=== PATIENT | male | born 1965 | race Caucasian/White ===

== ENCOUNTER 2016-12-26 03:01 | Emergency (ER) | payer OTHER ==
--- NOTE | 2016-12-26 03:27 | ED ---
General Adult HPI - General Source: patient, EMS, RN notes reviewed Mode of arrival: EMS Limitations: physical limitation <Radha Tim - Last Filed: 12/26/16 03:59> <Lloyd Childs - Last Filed: 12/26/16 05:05> - General Stated complaint: rib pain Time Seen by Provider: 12/26/16 03:02 - History of Present Illness Initial comments: 51 yo male presents to the ER with cc of left sided rib pain. patient states he fell last friday and hit the left side of his rib cage. Patient states that he has slowly been healing but today he moved just right and had a stabbing pain to the left side of his chest. pain to movement and breathing. there is no abdominal pain, no other injury from the fall. patient denies back pain. Patient denies any recent fever, chills, shortness of breath, chest pain, back pain, abdominal pain, nausea vomiting, numbness or tingling, dysuria or hematuria, constipation or diarrhea, headaches or visual changes, or any other current symptoms. (Radha Tim) - Related Data Previous Rx's Medication Instructions Recorded Hydrocodone/Acetaminophen [[place] 1 each PO Q6HR PRN #20 tab 12/26/16 5-325] Allergies Allergy/AdvReac Type Severity Reaction Status Date / Time No Known Allergies Allergy Verified 12/26/16 03:13 Review of Systems ROS Other: All systems not noted in ROS Statement are negative. <Radha Tim - Last Filed: 12/26/16 03:59> ROS Other: All systems not noted in ROS Statement are negative. <Lloyd Childs - Last Filed: 12/26/16 05:05> ROS Statement: Those systems with pertinent positive or pertinent negative responses have been documented in the HPI. Past Medical History Past Medical History: No Reported History Additional Past Medical History / Comment(s): Kidney Stones 2007 History of Any Multi-Drug Resistant Organisms: None Reported Past Surgical History: No Surgical Hx Reported Past Psychological History: No Psychological Hx Reported Smoking Status: Never smoker Past Alcohol Use History: None Reported Past Drug Use History: None Reported <Radha Tim - Last Filed: 12/26/16 03:59> General Exam Limitations: physical limitation General appearance: alert, in no apparent distress Head exam: Present: atraumatic, normocephalic, normal inspection ENT exam: Present: normal exam, mucous membranes moist Neck exam: Present: normal inspection. Absent: tenderness, meningismus, lymphadenopathy Respiratory exam: Present: normal lung sounds bilaterally, chest wall tenderness (Left lateral and posterior along the rib cage). Absent: respiratory distress, wheezes, rales, rhonchi, stridor Cardiovascular Exam: Present: regular rate, normal rhythm, normal heart sounds. Absent: systolic murmur, diastolic murmur, rubs, gallop, clicks GI/Abdominal exam: Present: soft, normal bowel sounds. Absent: distended, tenderness, guarding, rebound, rigid Extremities exam: Present: normal inspection, full ROM, normal capillary refill. Absent: tenderness, pedal edema, joint swelling, calf tenderness Back exam: Present: normal inspection Neurological exam: Present: alert, oriented X3, CN II-XII intact Psychiatric exam: Present: normal affect, normal mood Skin exam: Present: warm, dry, intact, normal color. Absent: rash <Radha Tim - Last Filed: 12/26/16 03:59> Medical Decision Making <Radha Tim - Last Filed: 12/26/16 03:59> <Lloyd Childs - Last Filed: 12/26/16 05:05> - Medical Decision Making 51-year-old male presents to the emergency Department chief complaint of left- sided rib pain. (Radha Tim) Disposition <Radha Tim - Last Filed: 12/26/16 03:59> <Lloyd Childs - Last Filed: 12/26/16 05:05> Clinical Impression: Contusion of rib on left side, Chest wall pain, Fall, Rib fracture Disposition: HOME SELF-CARE Condition: Fair Instructions: Rib Contusion (ED) Additional Instructions: Please use medication as discussed. Please follow up with family doctor if symptoms have not improved over the next two days. Please return to the emergency room if your symptoms increase or worsen or for any other concerns. Prescriptions: Hydrocodone/Acetaminophen [[place] 5-325] 1 each PO Q6HR PRN #20 tab PRN Reason: Pain Referrals: Lloyd Ashby MD [Primary Care Provider] - 1-2 days
[2016-12-26] MEDS ORDERED: HYDROmorphone 1 MG/ML 1 ML SYRINGE IM STA (03:48)
--- NOTE | 2016-12-26 04:05 | XR ---
EXAM: XR Left Ribs and AP Chest, 3 or More Views CLINICAL HISTORY: Left mid posterior rib pain after fall from ladder TECHNIQUE: Frontal and oblique views of the left ribs and frontal view of the chest. COMPARISON: CT of the chest subsequently performed. FINDINGS: Lungs: Bibasilar atelectasis and/or infiltrates. Pleural space: Unremarkable. No pneumothorax. Heart: Unremarkable. No cardiomegaly. Mediastinum: Unremarkable. Bones/joints: Minimally displaced posterior fractures involving the left eighth and ninth ribs. IMPRESSION: Minimally displaced posterior fractures involving the left eighth and ninth ribs. Bibasilar atelectasis and/or infiltrates.
--- NOTE | 2016-12-26 04:59 | CT ---
EXAM: CT Chest Without Intravenous Contrast CLINICAL HISTORY: Left mid posterior rib pain after fall from ladder. TECHNIQUE: Axial computed tomography images of the chest without intravenous contrast. DLP is 537.50 mGy-cm. This CT exam was performed using one or more of the following dose reduction techniques: automated exposure control, adjustment of the mA and/or kV according to patient size, and/or use of iterative reconstruction technique. COMPARISON: FINDINGS: Lungs: Patchy airspace disease is seen in the bilateral lower lobes, the right middle lobe, and lingula, which likely represents atelectatic changes. Given the patient's history, this also may represent areas of pulmonary contusion. Pleural space: Unremarkable. No pneumothorax. No significant effusion. Heart: Unremarkable. No cardiomegaly. No significant pericardial effusion. Bones/joints: Minimally displaced posterior fractures involving the eighth and ninth left ribs. No dislocation. Soft tissues: Grossly unremarkable. Vasculature: Unremarkable. No thoracic aortic aneurysm. Lymph nodes: Unremarkable. No significantly enlarged lymph nodes. IMPRESSION: 1. Minimally displaced posterior fractures involving the eighth and ninth left ribs. 2. Patchy airspace disease in the bilateral lower lobes, the right middle lobe, and lingula, which likely represents atelectatic changes. Given the patient's history, this also may represent areas of pulmonary contusion.
[2016-12-26] MEDS ORDERED: IBUPROFEN 600 MG TAB PO STA (05:19)
[2016-12-26 05:44] VITALS: BP 126/77; PULSE 69; RESP 18; TEMP 97.9
== END 2016-12-26 05:55 | disposition home or self-care (01) ==
LOC: EC 03:01
DX: S22.32XA Fracture of one rib, left side, initial encounter for closed fracture (principal); W01.10XA Fall on same level from slipping, tripping and stumbling with subsequent striking against unspecified object, initial encounter
CPT/HCPCS: 71101; 71250; 99284; 96372; J1170

== ENCOUNTER → 2017-06-09 | Outpatient (CLI) | payer OTHER ==
--- NOTE | 2017-06-09 21:54 | MR ---
EXAMINATION TYPE: MR cervical spine wo con DATE OF EXAM: 06/09/2017 COMPARISON: NONE HISTORY: 51-year-old male RIGHT ARM NUMBNESS TECHNIQUE: Multiplanar, multisequence images of the cervical spine were acquired. FINDINGS: No craniocervical junction abnormality, predental space widening, or prevertebral soft tissue swellin g. Normal alignment of the cervical spine. Mild heterogeneous marrow signal without suspicious bone marrow replacement. Variable mild intervertebral disc desiccation with small disc osteophyte complexes particularly at C4 -C5, C5-C6, and C6-C7. Scattered facet and uncovertebral joint degenerative change. At C2-C3, mild facet arthropathy without canal or foraminal stenosis. At C3-C4, mild facet and uncovertebral joint arthropathy without significant canal or foraminal steno sis. At C4-C5, minimal disc osteophyte complex with facet arthropathy. No significant canal or foraminal s tenosis. At C5-C6, broad-based disc osteophyte complex with contiguous uncovertebral joint degenerative change . Additional bilateral facet degenerative change. Changes result in [id number] left and moderat e right neuroforaminal stenosis. There is minimal narrowing of the spinal canal with ventral compress ion of the thecal sac and abutment of the ventral cord but no cord flattening. At C6-C7, there is broad-based disc osteophyte, eccentric towards the left leg left-sided uncovertebr al joint degenerative change. Bilateral facet degenerative change. There is minimal narrowing of the spinal canal with ventral compression of the thecal sac but no significant cord contact. No significa nt neuroforaminal stenosis. At C7-T1, mild facet degenerative change without canal or foraminal stenosis. No prevertebral or paravertebral soft tissue abnormality seen. Normal course and signal intensity of the cervical cord. IMPRESSION: 1. Mild multilevel degenerative disc disease along with a mild facet and uncovertebral joint arthropa thy. 2. Small disc osteophyte complexes particularly from C4 through C7 levels mildly encroach on the vent ral thecal sac minimally narrowing the spinal canal. At C5-C6, there is ventral cord abutment. Howeve r, there is no cord flattening or cord compression at any level. 3. At C5-C6, changes result in moderate right and [id number] left neuroforaminal stenosis.
== END | disposition home or self-care (01) ==
LOC: RADMRIMAIN 16:54
PROVIDERS: ATTEND Psychiatry & Neurology Neurology
DX: M99.71 Connective tissue and disc stenosis of intervertebral foramina of cervical region (principal); M50.30 Other cervical disc degeneration, unspecified cervical region; M46.82 Other specified inflammatory spondylopathies, cervical region; M25.78 Osteophyte, vertebrae
CPT/HCPCS: 72141

== ENCOUNTER 2020-02-14 16:40 | Emergency (ER) | payer OTHER ==
[2020-02-14 16:45] VITALS: TEMP 97.7
--- NOTE | 2020-02-14 17:48 | XR ---
EXAMINATION TYPE: XR ankle complete LT DATE OF EXAM: 02/14/2020 COMPARISON: NONE HISTORY: Fall. Pain. TECHNIQUE: 3 views FINDINGS: There is soft tissue swelling over the lateral malleolus. Ankle mortise is anatomic. I see no fracture. Subtalar joint appears normal. IMPRESSION: Soft tissue swelling. No fracture seen.
--- NOTE | 2020-02-14 17:49 | ED ---
General Adult HPI - General Chief complaint: Fall Stated complaint: fall, lt ankle injury Time Seen by Provider: 02/14/20 16:56 Source: patient, RN notes reviewed, old records reviewed Mode of arrival: wheelchair Limitations: no limitations - History of Present Illness Initial comments: 54-year-old male patient to ED for evaluation of left lower extremity pain. Patient was reportedly walking when he fell into a crawlspace. He'll of both feet landing on his left foot. This pain in the left anterior ankle. Denies hitting his head or any pain in neck. Reports that he believes he may have fallen about 4 feet down. Denies any other complaints. Systemic: Pt denies fatigue, fever/chills, rash. Pt denies weakness, night sweats, weight loss. Neuro: Pt denies headache, visual disturbances, syncope or pre-syncope. HEENT: Pt denies ocular discharge or irritation, otalgia, rhinorrhea, pharyngitis or notable lymphadenopathy. Cardiopulmonary: Pt denies chest pain, SOB, heart palpitations, dyspnea on exertion. Abdominal/GI: Pt denies abdominal pain, n/v/d. : Pt denies dysuria, burning w/ urination, frequency/urgency. Denies new onset urinary or bowel incontinence. MSK: Pt denies myalgia, loss of strength or function in extremities. Neuro: Pt denies new onset weakness, paresthesias. - Related Data Previous Rx's Medication Instructions Recorded Hydrocodone/Acetaminophen [[place] 1 each PO Q6HR PRN #20 tab 12/26/16 5-325] Allergies Allergy/AdvReac Type Severity Reaction Status Date / Time No Known Allergies Allergy Verified 02/14/20 16:44 Review of Systems ROS Statement: Those systems with pertinent positive or pertinent negative responses have been documented in the HPI. ROS Other: All systems not noted in ROS Statement are negative. Past Medical History Past Medical History: No Reported History Additional Past Medical History / Comment(s): Kidney Stones 2007 History of Any Multi-Drug Resistant Organisms: None Reported Past Surgical History: No Surgical Hx Reported Past Psychological History: No Psychological Hx Reported Smoking Status: Never smoker Past Alcohol Use History: None Reported Past Drug Use History: None Reported General Exam - General Exam Comments Initial Comments: Constitutional: NAD, AOX3, Pt has pleasant affect. HEENT: NC/AT, trachea midline, neck supple, no lymphadenopathy. External ears appear normal, without discharge. Mucous membranes moist. Eyes PERRLA, EOM intact. There is no scleral icterus. No pallor noted. Cardiopulmonary: RRR, no murmurs, rubs or gallops, no JVD noted. Lungs CTAB in anterior and posterior benson. No peripheral edema. Abdominal exam: Abdomen soft and non-distended. Abdomen non-tender to palpation in all 4 quadrants. Bowel sounds active in LLQ. No hepatosplenomegaly. Neuro: CN II-XII grossly intact. No nuchal rigidity. No raccon eyes, no thomas sign, no hemotympanum. No cervical spinal tenderness. No thoracic or lumbar tenderness. MSK: Left anterior ankle tender to palpation. Mild amount of midfood tenderness. No skin changes. No posterior calf tenderness bilaterally, homans sign negative bilaterally. Posterior tibialis and radial pulse +2 bilaterally. Sensation intact in upper and lower extremities. Limitations: no limitations Course Vital Signs 02/14/20 02/14/20 16:42 18:00 Temperature 97.7 F Pulse Rate 103 H 86 Respiratory 18 16 Rate Blood Pressure 150/95 122/76 O2 Sat by Pulse 96 99 Oximetry Procedures - Orthopedic Splinting/Casting Injury #1 Side: left Upper Extremity Immobilizer: posterior splint Lower Extremity Injury Location: short leg Medical Decision Making - Medical Decision Making 54 male patient ED for evaluation left ankle foot injury. Plain films negative. Patient is nonambulatory due to pain. Will be placed in a posterior ankle splint. Neurovascularly intact before and after splint placement. The surgical outpatient follow-up with orthopedic surgeon nonweightbearing with crutches. Disposition Clinical Impression: Ankle sprain Disposition: HOME SELF-CARE Condition: Stable Instructions (If sedation given, give patient instructions): Ankle Sprain (ED) Additional Instructions: Follow up with PCP and orthopedic consult tomorrow. Continue to wear ankle splint. Use crutches return to ED with any worsening symptoms. Is patient prescribed a controlled substance at d/c from ED?: No Referrals: None,Stated [Primary Care Provider] - 1-2 days Arsh Grayson DO [Doctor of Osteopathic Medicine] - 1-2 days
--- NOTE | 2020-02-14 17:49 | XR ---
EXAMINATION TYPE: XR tibia fibula LT DATE OF EXAM: 02/14/2020 COMPARISON: NONE HISTORY: Fall. Pain. TECHNIQUE: 3 views FINDINGS: Tibia and fibula appear intact. I see no fracture nor dislocation. There are no pathologic calcifications. IMPRESSION: Negative left tibia and fibula exam.
--- NOTE | 2020-02-14 17:51 | XR ---
EXAMINATION TYPE: XR foot complete LT DATE OF EXAM: 02/14/2020 COMPARISON: NONE HISTORY: Fall. Pain. TECHNIQUE: 3 views FINDINGS: I see no fracture nor dislocation. Metatarsals are intact. There are no erosions. Joint spa thiago are normal. IMPRESSION: Negative left foot exam.
[2020-02-14 18:34] VITALS: BP 122/76; PULSE 86; RESP 16
== END 2020-02-14 18:34 | disposition home or self-care (01) ==
LOC: EC 16:40
DX: S93.402A Sprain of unspecified ligament of left ankle, initial encounter (principal); W01.0XXA Fall on same level from slipping, tripping and stumbling without subsequent striking against object, initial encounter; Y93.01 Activity, walking, marching and hiking; Y92.69 Other specified industrial and construction area as the place of occurrence of the external cause; Y99.0 Civilian activity done for income or pay
CPT/HCPCS: 29515; 99284

== ENCOUNTER → 2020-04-24 | Outpatient (CLI) | payer OTHER ==
--- NOTE | 2020-04-24 11:00 | US ---
EXAMINATION TYPE: US venous doppler duplex LE LT DATE OF EXAM: 04/24/2020 10:47 AM COMPARISON: NONE CLINICAL HISTORY: 54-year-old male I80.9 Phlebitis and thrombophlebitis. Calf tightness. No swelling or redness. No hx blood clots. Not on blood thinners. SIDE PERFORMED: Left TECHNIQUE: The lower extremity deep venous system is examined utilizing real time linear array sonog keeley with graded compression, doppler sonography and color-flow sonography. FINDINGS: VESSELS IMAGED: Common Femoral Vein Deep Femoral Vein Greater Saphenous Vein * Femoral Vein Popliteal Vein Small Saphenous Vein * Proximal Calf Veins (* superficial vessels) Left Leg: Negative for DVT IMPRESSION: No evidence for DVT within the left lower extremity imaged from the groin to the upper calf.
== END | disposition home or self-care (01) ==
LOC: RADUSWWP 10:28
PROVIDERS: ATTEND Orthopaedic Surgery
DX: M25.572 Pain in left ankle and joints of left foot (principal); S93.402D Sprain of unspecified ligament of left ankle, subsequent encounter; I80.9 Phlebitis and thrombophlebitis of unspecified site